=== PATIENT | female | born 1985 | race Caucasian/White ===

== ENCOUNTER 2021-08-16 19:54 | Emergency (ER) | payer OTHER, SELFPAY ==
--- NOTE | 2021-08-16 19:58 | XRR_ITS ---
PROCEDURE INFORMATION: Exam: XR Right Ankle Exam date and time: 08/16/2021 8:05 PM Age: 36 years old Clinical indication: Injury or trauma; Fall; Work related; Sprain or strain; Ankle; Right; Additional info: Right ankle injury and pain TECHNIQUE: Imaging protocol: Radiologic exam of the Right ankle. Views: 3 or more views. COMPARISON: No relevant prior studies available. FINDINGS: Bones/joints: Normal. Soft tissues: Normal. XR/XR ankle RT min 3V* [id number] IMPRESSION: No acute findings.
[2021-08-16 20:50] VITALS: BP 124/68; PULSE 96; RESP 15; TEMP 36.9; O2SAT 98; BMI 33.8
--- NOTE | 2021-08-16 22:05 | W.ED.EXTPRO ---
HPI - Extremity Problem General: Chief complaint: Extremity Injury, Lower Stated complaint: Rt ankle injury Time Seen by Provider: 08/16/21 21:53 History of Present Illness: Patient is a 36-year-old female comes to the ED with right ankle injury. Patient was stepping off a stepladder and landed on her right ankle awkwardly causing it to roll. Patient reports hearing a pop when it happened. She is unable to bear weight on right foot since injury. She rates her pain currently a 5 out of 10. Associated symptoms: Deny chest pain, fever(s) or rash Review of Systems Const: Denies: fever(s), chills or fatigue Eyes: Denies: change in vision or eye discomfort ENMT: Denies: throat pain, odynophagia, nasal discharge or nasal congestion Card: Denies: chest pain, palpitations, edema, swelling of feet/ankles, dyspnea on exertion or orthopnea Resp: Denies: dyspnea, productive cough or non-productive cough GI: Denies: abdominal pain, nausea, vomiting, diarrhea, constipation or hematochezia : Denies: flank pain, dysuria or hematuria Musc: Reports: extremity pain (Right ankle pain) and extremity swelling (Right ankle swelling); Denies: neck pain or back pain Skin/Breast: Denies: rash or new lesions Neuro: Denies: headache(s), numbness in extremities or weakness in extremities PFS ED PFSH: Medical History (Updated 08/17/21 @ 16:13 by NAZARIO Paulson) No pertinent family history Surgical History (Updated 08/17/21 @ 16:13 by NAZARIO Paulson) No pertinent past surgical history Physical Exam Const: COMMON NORMALS: no acute distress, patient oriented x3 and alert GENERAL APPEARANCE: cooperative and comfortable HENMT: COMMON NORMALS: normocephalic HEAD & SCALP: normocephalic MOUTH: Normal oral and palatal mucosa present THROAT: posterior oropharynx normal and uvula midline Neck/C-Spine: COMMON NORMALS: supple GENERAL: Yes normal visual inspection Resp: COMMON NORMALS: normal respiratory effort, No retractions, No use of accessory muscles and clear to auscultation bilaterally AUSCULTATION: clear to auscultation bilaterally Cardio: COMMON NORMALS: regular rate, regular rhythm, S1 normal heart sound present, S2 normal heart sound present, No gallops present (Cardio), No clicks present (Cardio), No murmurs present (Cardio) and Peripheral pulses 2+ throughout RATE: regular rate RHYTHM: regular rhythm HEART SOUNDS: S1 normal heart sound present and S2 normal heart sound present PERIPHERAL PULSES: Peripheral pulses 2+ throughout GI: COMMON NORMALS: Normal to inspection, nondistended, normoactive bowel sounds present, Soft to palpation, non-tender and no masses PALPATION: Yes Soft to palpation : COMMON NORMALS: Yes no CVA tenderness BLADDER/KIDNEY EXAM: Yes no CVA tenderness Back/Pelvis: COMMON NORMALS: no CVA tenderness Extremity: NARRATIVE EXTREMITY EXAM: Right ankle?no visible deformity noted. Some mild swelling over lateral malleolus. Tenderness over lateral malleolus. Neurovascular intact. Neuro: COMMON NORMALS: patient oriented x3 and moves all extremities SENSORIUM/ORIENTATION: Yes alert Skin: GENERAL SKIN EXAM: dry skin Course Vital Signs: Vital signs: Vital Signs Temperature 98.4 F 08/16/21 20:50 Pulse Rate 96 08/16/21 20:50 Respiratory Rate 15 08/16/21 20:50 Blood Pressure 124/68 08/16/21 20:50 Pulse Oximetry 98 08/16/21 20:50 MDM - Extremity (Nontraumatic) Medical Decision Making Patient is a 36-year-old female comes to the ED with right ankle injury. Patient was stepping off a stepladder and landed on her right ankle awkwardly causing it to roll. Patient reports hearing a pop when it happened. She is unable to bear weight on right foot since injury. Vital stable. Right ankle?no visible deformity noted. Some mild swelling over lateral malleolus. Tenderness over lateral malleolus. Neurovascular intact. X-ray of right ankle showed no acute fractures or findings. Patient was diagnosed with an ankle sprain and was discharged home and told to use her crutches/walker at home for the next couple days to help with ambulation and to limit weightbearing to allow for healing. Rest, ice and elevate right ankle. She was sent home with a prescription of ibuprofen 800 for pain. Follow-up with PCP in a week for reevaluation. Patient understood and agreed with plan. Lab Data Radiology Impressions Ankle X-Ray 08/16/21 19:58 IMPRESSION: No acute findings. Discharge Plan Discharge Patient Disposition: Home Clinical Impression: Ankle sprain and strain Condition: Stable Prescriptions: New ibuprofen 800 mg tablet 800 mg PO Q8H PRN (Reason: pain) Qty: 20 0RF Discharge Orders: Discharge ED (Routine); Ordered 08/16/21 Ordered By: Mikel Cain Discharge Diet: Regular Discharge Activity: Increase activity as tolerated and Use walker/crutches as instructed Patient Instructions: Ankle Sprain (ED) Activity Restrictions/Additional Instructions: Follow-up with medical provider as directed in the next 7 to 10 days for reevaluation. Use walker to limit weightbearing for the next 2 to 3 days and advance weightbearing as tolerated. Rest, ice and elevate right ankle. Take medications as prescribed. Return to the ER or your medical provider if condition worsens. Please read and understand discharge instructions. Thank you for choosing [facility] for your healthcare needs today. Please realize this is an emergency room and that we are providing you with a medical screening exam and this may not be complete and all inclusive of all the testing and or work up that you may need to determine your ailment or severity of your illness. It is very important that you follow up as instructed or that you return to the Emergency Department should you have concerns or if your condition changes or worsens in any way. Stand Alone Forms: Work/School Release Coding Level of Care Code ED Zigzag Topstitcher for Francesco Fwtatiana Exam Comprehensive
[2021-08-16] MEDS: ketorolac 60 mg/2 mL INJ IM (22:21)
== END 2021-08-16 22:26 | disposition home or self-care (01) ==
PROVIDERS: Emergency Provider Physician Assistant
DX: S93.401A Sprain of unspecified ligament of right ankle, initial encounter (principal); S96.911A Strain of unspecified muscle and tendon at ankle and foot level, right foot, initial encounter; X50.1XXA Overexertion from prolonged static or awkward postures, initial encounter
CPT/HCPCS: 73610; 96372; 99284; J1885

== ENCOUNTER 2024-07-16 12:21 | Emergency (ER) | payer OTHER, MEDICAID, SELFPAY ==
[2024-07-16 12:43] VITALS: BP 126/85; PULSE 75; RESP 17; TEMP 36.8; O2SAT 97; BMI 31.2
--- NOTE | 2024-07-16 13:10 | XRR_ITS ---
PROCEDURE INFORMATION: Exam: XR Lumbosacral Spine Exam date and time: 07/16/2024 1:15 PM Age: 39 years old Clinical indication: Lumbago; Lower back pain after blunt trauma TECHNIQUE: Imaging protocol: Radiologic exam of the lumbosacral spine. Views: 2 or 3 views. COMPARISON: No relevant prior studies available. FINDINGS: Bones/joints: There are mild degenerative changes of the sacroiliac joints. Mild curvature of the lumbar spine convex to the right. No acute fracture, compression deformity or spondylolisthesis. Soft tissues: Unremarkable. Organs: There has been a cholecystectomy. XR/XR lumbar spine 2-3V* [id number] IMPRESSION: No acute fracture or dislocation.
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
[2024-07-16 14:03] LABS: Bilirubin Urine Negative (Negative); Blood Urine Negative (Negative); Glucose Urine UA Negative (Normal); Ketones Urine Negative (Negative); Leukocyte Esterase Urine 2+ (Negative); Nitrate Urine Negative (Negative); Protein Urine Negative (Negative); Urine Appearance Cloudy (CLEAR); Urine Color Yellow (Yellow); Urobilinogen Urine 0.2 mg/dL (Negative)
[2024-07-16 14:06] LABS: Add Urine Microscopic? YES; Bacteria Urine 1+ /hpf; RBC Urine 0-2 /hpf (0-2)
[2024-07-16 14:24] VITALS: BP 142/93; PULSE 80; O2SAT 100
== END 2024-07-16 14:24 | disposition home or self-care (01) ==
PROVIDERS: Emergency Provider Physician Assistant
DX: S30.0XXA Contusion of lower back and pelvis, initial encounter (principal); N30.00 Acute cystitis without hematuria
CPT/HCPCS: 72100; 81001; 99283